=== PATIENT | female | born 1955 | race Two or more races ===

== ENCOUNTER 2018-02-19 06:13 | Emergency (ER) | payer OTHER ==
[~2018-02-19] VITALS: Ht 170.2 cm; Wt 88.0 kg
[2018-02-19 06:19] VITALS: Ht 170.2 cm; Wt 88.0 kg
[2018-02-19 09:28] VITALS: BP 135/76
== END 2018-02-19 09:28 | disposition home or self-care (01) ==
LOC: ED 06:13
DX: S20.211A Contusion of right front wall of thorax, initial encounter (principal); S30.1XXA Contusion of abdominal wall, initial encounter; Z88.5 Allergy status to narcotic agent; E11.9 Type 2 diabetes mellitus without complications; Z88.8 Allergy status to other drugs, medicaments and biological substances; V49.88XA Car occupant (driver) (passenger) injured in other specified transport accidents, initial encounter; Y93.I9 Activity, other involving external motion; Y92.413 State road as the place of occurrence of the external cause; Y99.8 Other external cause status
CPT/HCPCS: J2270; Q0162